=== PATIENT | male | born 1955 | race Caucasian/White ===

== ENCOUNTER 2018-06-29 10:43 | Inpatient (IN) ==
[2018-06-29] MEDS ORDERED: CeFAZolin Syr 2,000MG/20 ML 2,000 MG/20 ML SYRINGE IVPB ONE (10:55)
[2018-06-29] MEDS ORDERED: Ringers Solution, Lactated 1,000 ML IVC SCH (11:00)
--- NOTE | 2018-06-29 12:31 | Anesthesia Evaluation PreOp ---
Date of Encounter: 06/29/18 Time of Encounter: 12:16 - Past History Planned Operation: Robotic Right Incisional Hernia Cardiac History: Denies any Significant Hx Pulmonary History: Denies Any Significant HX [employer] History: Seizures (last one 1994) Other Medical History: Denies Any Significant HX Anesthesia History: No Prior Anesthetic Complications, Past Anesthesia (CTR, Co lonoscopy, abdominal sx, r- wrist) Alcohol Use: none Drug use: none Medications and Allergies carBAMazepine [Tegretol] 200 mg PO BID 04/29/18 [History] FLUoxetine HCl [Fluoxetine HCl] 40 mg PO QAM 06/29/18 [History] Allergy/AdvReac Type Severity Reaction Status Date / Time morphine AdvReac Vomiting Verified 06/29/18 11:17 - Meds/Allergy Pre-op Review Medications Reviewed: Yes Allergies Reviewed: Yes Beta Blockers on Current Med List: No Anesthesia Results - Labs Laboratory Tests 06/19/18 06/19/18 14:02 14:02 WBC 5.8 Hgb 13.8 Hct 41.3 Plt Count 384 Creatinine 0.68 L - Imaging EKG: report reviewed Anesthesia Exam O2 Sat Height 1.68 m Height 1.68 m Weight 78.018 kg Weight 78.018 kg O2 Sat by Pulse Oximetry 95 Vital Signs Temp Pulse Resp BP Pulse Ox 98.3 F 76 18 128/77 95 06/29/18 10:59 06/29/18 10:59 06/29/18 10:59 06/29/18 10:59 06/29/18 10:59 NPO (# of Hours): > 8 hrs Pain Scale: 0 Pain Scale Used: Numeric (1 - 10) - HEENT Pupil (Motor): EOMI Mallampati: II Teeth: Normal Oral Opening: Greater than 3 - [employer] LOC: Oriented [employer] Motor: Normal RUE, Normal LUE, Normal RLE, Normal LLE, Normal Face [employer] Sensory: Normal: RUE, LUE, RLE, LLE, Face - Cardiac Rhythm: Regular Murmur: None JVD: No Carotid Bruit: No - Pulmonary Breath Sounds: bilateral Clear Respiratory Effort: Symmetrical Anesthesia Assess/Plan ASA Score: 2 Level of consciousness: Cooperative Anesthetic Plan: General Autologous Blood: Yes Monitoring Plan: Standard Monitors Recovery Plan: PACU
[2018-06-29] MEDS ORDERED: Albuterol 2.5 MG/3 ML NEBULIZER IH ONE (12:43)
[2018-06-29] MEDS ORDERED: *HR* OxyCODONE Immed Rel 5 MG TABLET PO PRN (12:43)
[2018-06-29] MEDS ORDERED: *HR* HYDROmorphone (PF) 1 MG/ML SYRINGE IVP PRN (12:43)
[2018-06-29] MEDS ORDERED: *HR* Promethazine 25 MG/ML VIAL IVP PRN (12:43)
[2018-06-29] MEDS ORDERED: Ondansetron 4 MG/2 ML VIAL IVP ONE (12:43)
[2018-06-29] MEDS ORDERED: *HR* Labetalol 20 MG/4 ML SYRINGE IVP PRN (12:43)
[2018-06-29] MEDS ORDERED: Ondansetron 4 MG/2 ML VIAL ONE (13:29)
[2018-06-29] MEDS ORDERED: *HR* FentaNYL (PF) 100 MCG/2 ML VIAL ONE (13:29)
[2018-06-29] MEDS ORDERED: *HR* Midazolam HCl 2 MG/2 ML VIAL ONE (13:29)
[2018-06-29] MEDS ORDERED: Dexamethasone 4 MG/ML VIAL ONE (13:29)
[2018-06-29] MEDS ORDERED: *HR* Propofol 200 MG/20 ML VIAL IVP ONE (13:29)
[2018-06-29] MEDS ORDERED: Lidocaine -MPF 2% 2 ML VIAL ONE (13:29)
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
--- NOTE | 2018-06-29 14:27 | Operative Note ---
Date of procedure: 06/29/18 Pre-op diagnosis: incisional hernias Post-op diagnosis: other (same and trocar colon injury) Procedure: Laparoscopic converted to open, lysis of adhesions x 1 hour, repair colotomy x 2, primary repair incisional hernias. Complications: none immediate Anesthesia: DEVIA, local Surgeon: Elisa Campos Was there an real estate administrative assistant present: Yes Music Library Assistant: Katerina Vallejo Estimated blood loss (cc): 25 Specimen: transverse colon Condition: stable Disposition: PACU Procedure in Detail: Patient is brought to the operating suite and placed supine on the operating table. Sign in was performed and everyone was in agreement. Anesthesia was induced and patient was endotracheally intubated by anesthesia without incident. Bilateral arms were tucked at the patient's side. The abdomen was shaved. The abdomen was prepped and draped in the usual sterile fashion. Timeout was performed again everyone was in agreement. Stab incision in the right upper quadrant through the skin and the subcutaneous tissues made with the 11 blade. Veress needle was placed in this and water drop test confirmed placement and the abdomen was insufflated. We then entered the abdomen with a 5 mm 0 degree laparoscope and a 5 mm XL trocar in the right upper quadrant incision site. Once into the abdomen it was noted that we were intraluminal likely colonic. The trocar was left in place and the gas turned off. A midline incision through the skin and the subcutaneous tissue with the upper abdomen was made with a 15 blade. Dissection through the subcutaneous tissue into the abdominal cavity was made with the Bovie. The fascial incision was elongated proximally and distally. Lysis of adhesions between the colon, small bowel, and anterior abdominal wall were taken down with the Bovie and with sharp Metzenbaum scissors for over an hour freeing up the colon in the right upper quadrant as well as the bowel beneath the open midline incision. There appeared to be a through and through injury to the transverse colon from the 5 mm trocar, which were several centimeters away from each other. Babcocks were placed along the distal colotomy in the colon was closed with a linear BEVERLY-75 stapler blue load. The staple line was reinforced with 3-0 silk [id number] stitches. One [place] was placed across the proximal colotomy and this was closed with a TX 30 stapler. The abdominal cavity was irrigated copiously with sterile saline. There was a retroperitoneal hematoma which was opened. There did not appear to be any renal injury as this was overlying the right kidney. The duodenum was seen and evaluated and no apparent injury to the duodenum. The abdomen was irrigated with sterile saline again. A incision of the right abdominal wall through the skin and the subcutaneous tissues made with a 15 blade. Using a tonsil a 19-Hebrew Buster drain was pulled through the abdominal wall and secured to the abdominal wall with a 2-0 silk stitch. Prosper's were placed in either side of the fascia for retraction. Preperitoneal and omental fat that had herniated into the 3, several centimeter, hernia defects just ( bi-)lateral to the midline incision were taken down with the Bovie and Metzenbaum scissors. The abdominal wall was reapproximated with 2 #1 non-looped PDS running stitches meeting in the middle. All lap and ensuring counts are correct at the end of the case. The subcutaneous tissue was copiously irrigated with sterile saline. The subcutaneous tissue was reapproximated with 3-0 Vicryl interrupted stitches. The skin was closed with angela. 2 areas of midline incision were packed with quarter inch iodoform packing. The right upper quadrant incision from a trocar was packed with quarter inch iodoform packing. 4 x 4 gauze and Medipore tape were applied to the right upper quadrant trocar site and the midline incision as dressing. Drain sponge and tape were applied to the Buster drain site. Patient tolerated the procedure well. He was awoken by anesthesia next abated in the OR. He was taken to PACU in stable condition.
--- NOTE | 2018-06-29 14:30 | Discharge Summary ---
Outpatient Proc Discharge Plan - Plan Instructions: Incisional Hernia (DC), Laparoscopic Herniorrhaphy (DC) Additional Instructions: No lifting more than 20 pounds for 6 weeks. Okay to take a shower in 24 hours. No tub baths or pools for 1 week. Okay to ride in the car wearing a seatbelt and climb steps. No driving until off narcotics for 24 hours and able to react safely Remove Steri-Strips in 1 week Do not take pain medicine/narcotics on an empty stomach it will likely cause nausea and possibly vomiting. If pain medication is too strong okay to break in half ok to use ice packs to area(s) of pain - on for 20 minutes, off for 20 minutes Prescriptions: Docusate [Colace] 100 mg PO BID #30 capsule Oxycodone HCl/Acetaminophen [Percocet 5-325 mg Tablet] 1 each PO Q4HR PRN 7 Days #30 tablet PRN Reason: Pain Home Medications: carBAMazepine [Tegretol] 200 mg PO BID 04/29/18 [History] Docusate [Colace] 100 mg PO BID #30 capsule 06/29/18 [Rx] FLUoxetine HCl [Fluoxetine HCl] 40 mg PO QAM 06/29/18 [History] Oxycodone HCl/Acetaminophen [Percocet 5-325 mg Tablet] 1 each PO Q4HR PRN 7 Days #30 tablet 06/29/18 [Rx]
[2018-06-29] MEDS ORDERED: *HR* OxyCODONE/APAP 5/325 TABLET PO ONE (14:31)
[2018-06-29] MEDS ORDERED: Neostigmine Methylsulfate 3 MG/3 ML SYRINGE ONE (14:53)
[2018-06-29] MEDS ORDERED: *HR* Morphine 10 MG/ML VIAL ONE (15:02)
[2018-06-29] MEDS ORDERED: *HR* HYDROMORPHONE 2 MG/ML VIAL ONE ×2 (15:12→16:18)
[2018-06-29] MEDS ORDERED: Piperacillin/Tazobactam 3.375 GM in 0.9 % Sodium Chloride Mini Bag 100 ML IVPB STA (15:25)
--- NOTE | 2018-06-29 21:09 | Anesthesia Evaluation Post Op ---
Date of Encounter: 06/29/18 Time of Encounter: 19:30 - Vital Signs Vital Signs: Vital Signs/O2 Sat/Glucose, Most Current Temp Pulse Resp BP Pulse Ox 06/29/18 19:26 98.4 F 92 16 104/61 95 06/29/18 19:16 86 16 110/59 94 06/29/18 19:06 93 16 109/63 95 06/29/18 18:56 98.1 F 80 16 111/59 95 06/29/18 18:46 83 16 114/57 95 06/29/18 18:36 80 16 114/58 95 06/29/18 18:26 98.1 F 93 12 124/66 94 06/29/18 18:16 87 14 120/70 94 06/29/18 18:06 78 14 120/69 94 06/29/18 17:56 97.8 F 80 14 122/71 94 06/29/18 17:46 79 16 129/83 94 06/29/18 17:36 79 14 138/79 95 06/29/18 17:26 98.2 F 80 14 130/88 95 06/29/18 17:16 75 14 134/77 98 06/29/18 17:10 98.1 F 75 14 122/74 98 - Lungs Lungs: Clear Ascult./Percussion - Airway Airway: Non-obstructed - Mental Status Mental Status: Alert & Oriented, Answers Appropriately - Pain Pain Scale: 0 Pain Scale used: Numeric (1 - 10) - Nausea Vomiting Nausea Vomiting: Not Present - Hydration Hydration: Tolerates oral liquids, Able to void - Discharge PostOp Status: Discharge Patient to home Anes Supervising Prov Stmt: PT VSS and has met criteria for discharge to floor. - MD Tangela
[2018-06-29] MEDS ORDERED: OXYCODONE Oral CONC 10 MG/0.5 ML ORAL.SYG SL SCH (22:15)
[2018-06-30] MEDS ORDERED: Acetaminophen IV 1,000 MG/100 ML INFUS..BTL IVPB SCH
[2018-06-30] MEDS ORDERED: *HR* Metoprolol 5 MG/5 ML VIAL IVP PRN (05:57)
[2018-06-30] MEDS ORDERED: Ondansetron 4 MG/2 ML VIAL IVP PRN (05:57)
[2018-06-30] MEDS ORDERED: Naloxone 0.4 MG/ML INJ IVP PRN ×2 (05:57)
[2018-06-30] MEDS ORDERED: *HR* HYDROmorphone 20 MG/20 ML PCA IVC PRN (05:57)
[2018-06-30] MEDS: 0.9 % Sodium Chloride 1,000 ML IVC SCH ×2 (07:24→16:03)
[2018-06-30] MEDS: Acetaminophen IV 1,000 MG/100 ML INFUS..BTL IVPB SCH ×3 (07:26→17:24)
[2018-06-30] MEDS: carBAMazepine 200 MG TABLET PO SCH ×3 (07:30→21:33)
[2018-06-30] MEDS ORDERED: OXYCODONE Oral CONC 10 MG/0.5 ML ORAL.SYG SL PRN (07:31)
[2018-06-30] MEDS: OXYCODONE Oral CONC 10 MG/0.5 ML ORAL.SYG SL PRN ×3 (08:07→21:33)
[2018-06-30] MEDS: Pantoprazole 40 MG VIAL IVP SCH (08:07)
[2018-06-30] MEDS: FLUoxetine 20 MG CAPSULE PO SCH (08:10)
[2018-06-30] MEDS: Piperacillin/Tazobactam 3.375 GM in 0.9 % Sodium Chloride Mini Bag 100 ML IVPB SCH ×2 (08:11→16:04)
--- NOTE | 2018-06-30 08:23 | General Surgery Progress Note ---
<SauravRebeca Galo - Last Filed: 06/30/18 08:51> Date of Encounter: 06/30/18 Time of Encounter: 08:30 - Assessment and Plan (1) Incisional hernia Current Visit: Yes Status: Chronic Date of procedure: 06/29/18 Pre-op diagnosis: incisional hernias Post-op diagnosis: other (same and trocar colon injury) Procedure: Laparoscopic converted to open, lysis of adhesions x 1 hour, repair colotomy x 2, primary repair incisional hernias. Complications: none immediate Anesthesia: GETA, local Surgeon: Elisa Campos POD #1 as above. ROB site is unremarkable. Sanguineous output in ROB drain. Small amount of new Sanguineous output on abdominal dressing. He is nauseated and a ctively vomiting x1 approximately 100 mL while I was in the room. He was treated with Phenergan x1 and a scopolamine patch ordered. He also has PRN Zofran. Labs are pending Plan: Continue supportive care and discomfort management while awaiting full return of bowel function Continue G.I. and DVT prophylaxis Incentive spirometry 10 times every hour while awake Out of bed to chair TID Activity as tolerated Apply ice 20 minutes on 20 minutes off as needed Apply abdominal binder ROB care Daily Dressing changes Repeat am labs Ice chips only; consideration to advance to clears pending resolution of nausea Continue IV ATBX given operative course above Qualifiers: Obstruction and gangrene presence: without obstruction or gangrene Qualified Code(s): K43.2 - Incisional hernia without obstruction or gangrene; K43.91 - Incisional hernia, without obstruction or gangrene (2) Seizures Current Visit: Yes Status: Acute per record review, last seizure was in the . We will continue his home tegratol and closely monitor (3) Depressed mood Current Visit: Yes Status: Acute Continue home Prozac (4) DVT prophylaxis Current Visit: Yes Status: Acute EPCDs possibly start heparin sub Q tonight pending labs and drainage Subjective Patient reports: still having pain, voiding w/o difficulty, no flatus, no bowel movement, nausea, vomiting Narrative: Reports feeling sore and has nausea. Vomiting x1 Objective Vital Signs - Last 8 Hours Temp Pulse Resp BP Pulse Ox 06/30/18 07:20 98.9 F 79 19 114/67 97 06/30/18 04:56 98.7 F 83 16 108/70 97 Intake and Output 06/29/18 06/30/18 06/30/18 23:59 07:59 15:59 Intake Total 200 / 200 Output Total 145 / 145 275 / 275 Balance -145 / -125 -75 / -75 Intake: IV Fluids 200 / 200 Ofirmev 1,000 mg/100 ml 1,000 200 / 200 mg In 100 ml @ 400 mls/hr IVPB Q6H [facility] Rx#:[id number] Output: Urine 275 / 275 Estimated Blood Loss 25 / 25 Wound Drainage 120 / 120 Other: Weight 78.018 kg 78.2 kg Patient Weight 06/30/18 23:59 Weight 78.2 kg - General physical appearance no distress - Eyes normal ocular movement - ENT atraumatic, normocephalic - Neck Neck exam: trachea midline - Respiratory other (decreased breath sounds; decreased resp effort) - Cardiovascular Cardiovascular exam: Present: RRR - Abdomen Abdomen: Present: soft, tender (expected postoperative), wound (ROB site unremarkable. ROB is with sanguineous output). Absent: bowel sounds present - Incision Incision: Present: draining (SS drainage), intact - Integumentary no rash - Neurologic normal coordination, normal sensation - Musculoskeletal normal posture - Psychiatric oriented to time, oriented to person, oriented to place, speech is normal, memory intact Consult Discharge Plan - Plan Instructions: Laparoscopic Herniorrhaphy (DC), Incisional Hernia (DC) Additional Instructions: No lifting more than 20 pounds for 6 weeks. Okay to take a shower in 24 hours. No tub baths or pools for 1 week. Okay to ride in the car wearing a seatbelt and climb steps. No driving until off narcotics for 24 hours and able to react safely Remove Steri-Strips in 1 week Do not take pain medicine/narcotics on an empty stomach it will likely cause nausea and possibly vomiting. If pain medication is too strong okay to break in half ok to use ice packs to area(s) of pain - on for 20 minutes, off for 20 minutes Referrals: Carmen Jules, INTERNAL GRINDER [Primary Care Provider] - <Elisa Campos - Last Filed: 06/30/18 14:28> Date of Encounter: 06/30/18 - Assessment and Plan (1) Incisional hernia Current Visit: Yes Status: Chronic pod #1 lap to open, KIT, repair colotomy x2, primary repair incisional hernias x4 npo prn antiemetics, scopalamine patch ivf hydration cont prn pain medication continue scheduled ofirmev ambulate, OOB BID ok continue home meds daily wound care continue antibiotics Qualifiers: Obstruction and gangrene presence: without obstruction or gangrene Qualified Code(s): K43.2 - Incisional hernia without obstruction or gangrene; K43.91 - Incisional hernia, without obstruction or gangrene (2) Leukocytosis Current Visit: Yes Status: Acute trend continue abx no fevers HR wnl Qualifiers: Leukocytosis type: other Qualified Code(s): D72.828 - Other elevated white blood cell count (3) DVT prophylaxis Current Visit: Yes Status: Acute (4) Seizures Current Visit: Yes Status: Acute continue home med Subjective Patient reports: still having pain, voiding w/o difficulty, no flatus, no bowel movement, nausea, vomiting, afebrile Objective Vital Signs - Last 8 Hours Temp Pulse Resp BP Pulse Ox 06/30/18 10:24 98.8 F 75 15 119/62 97 06/30/18 07:20 98.9 F 79 19 114/67 97 Intake and Output 06/29/18 06/30/18 06/30/18 23:59 07:59 15:59 Intake Total 200 / 900 700 / 900 Output Total 145 / 145 275 / 295 20 / 295 Balance -145 / -125 -75 / 605 680 / 605 Intake: IV Fluids 200 / 900 700 / 900 0.9 % Sodium Chloride 1,000 ML 500 / 500 @ 120 mls/hr IVC .[id number] [facility] Rx #:[id number] Ofirmev 1,000 mg/100 ml 1,000 200 / 300 100 / 300 mg In 100 ml @ 400 mls/hr IVPB Q6H [facility] Rx#:[id number] Zosyn 3.375 GM In 0.9 % Sodium 100 / 100 Chloride (Mini-Bag +) 100 ML @ 25 mls/hr IVPB Q8HR [facility] Rx#: [id number] Oral 0 / 0 Output: Urine 275 / 275 0 / 275 Estimated Blood Loss 25 / 25 Wound Drainage 120 / 120 20 / 20 Right Lower Abdomen Other: Meal NPO Percent of Meal Consumed 0% Weight 78.018 kg 78.2 kg Blood Glucose* 124 Patient Weight 06/30/18 23:59 Weight 78.2 kg - General physical appearance well developed, well nourished, no distress - Eyes PERRL, normal ocular movement - ENT normal mucosa, normocephalic - Neck Neck exam: trachea midline - Respiratory normal expansion, clear to auscultation - Cardiovascular Cardiovascular exam: Present: RRR - Abdomen Abdomen: Present: soft, tender, wound (ROB site unremarkable. ROB is with serosanguineous output). Absent: bowel sounds present - Incision Incision: Present: draining, intact - Neurologic normal coordination, normal sensation - Musculoskeletal normal gait, normal posture - Psychiatric oriented to time, oriented to person, oriented to place, speech is normal - Labs 06/30/18 09:25 06/30/18 09:25 Diabetes panel 06/30/18 Range/Units 09:25 Sodium 134 L (136-145) mEq/L Potassium 4.4 (3.5-5.1) mEq/L Chloride 102 (98-107) mEq/L Carbon Dioxide 29 (23-29) mEq/L BUN 15 (8-23) mg/dL Creatinine 0.76 (0.70-1.30) mg/dL Glucose 143 H (70-105) mg/dL Calcium 8.3 L (8.6-10.3) mg/dL AST 17 (13-39) Units/L ALT 16 (7-52) Units/L Alkaline Phosphatase 73 (34-104) Units/L Albumin 3.3 L (3.5-5.7) g/dL Calcium panel 06/30/18 Range/Units 09:25 Calcium 8.3 L (8.6-10.3) mg/dL Albumin 3.3 L (3.5-5.7) g/dL Pituitary panel 06/30/18 Range/Units 09:25 Sodium 134 L (136-145) mEq/L Potassium 4.4 (3.5-5.1) mEq/L Chloride 102 (98-107) mEq/L Carbon Dioxide 29 (23-29) mEq/L BUN 15 (8-23) mg/dL Creatinine 0.76 (0.70-1.30) mg/dL Glucose 143 H (70-105) mg/dL Calcium 8.3 L (8.6-10.3) mg/dL Adrenal panel 06/30/18 Range/Units 09:25 Sodium 134 L (136-145) mEq/L Potassium 4.4 (3.5-5.1) mEq/L Chloride 102 (98-107) mEq/L Carbon Dioxide 29 (23-29) mEq/L BUN 15 (8-23) mg/dL Creatinine 0.76 (0.70-1.30) mg/dL Glucose 143 H (70-105) mg/dL Calcium 8.3 L (8.6-10.3) mg/dL Total Bilirubin 0.8 (0.3-1.0) mg/dL AST 17 (13-39) Units/L ALT 16 (7-52) Units/L Alkaline Phosphatase 73 (34-104) Units/L Albumin 3.3 L (3.5-5.7) g/dL - Attending Attestation I have personally performed a face to face evaluation on this patient. I have reviewed and agree with the care plan. History and Exam by me shows:
[2018-06-30] MEDS ORDERED: *HR* Promethazine 25 MG/ML VIAL IVP STA (08:33)
[2018-06-30] MEDS ORDERED: Scopolamine Patch 1.5 MG PATCH.TD72 TD ONE (08:34)
[2018-06-30 09:35] LABS: Basophils % 0.2 %; Hematocrit 42.1 % (37.5-50.1); Hemoglobin 14.2 g/dL (12.9-16.9); Immature Granulocytes % 0.4 % (0-4); Lymphocytes % 4.8 %; Mean Corpuscular HGB Conc 33.7 g/dL (31.6-35.5); Mean Corpuscular Hemoglobin 33.5 pg (28.0-33.3); Mean Corpuscular Volume 99.3 fL (83.0-100.0); Mean Platelet Volume 9.8 fL (9.4-12.4); Monocytes # 1.6 K/mcL (0.0-1.3); Monocytes % 7.8 %; Neutrophils # 17.3 K/mcL (1.6-8.9); Platelet Count 336 K/mcL (140-400); Red Blood Count 4.24 M/mcL (4.19-5.50); Red Cell Distribution Width 14.2 % (11.5-14.5); Segmented Neutrophils % 86.8 %
[2018-06-30 09:56] LABS: BUN/Creatinine Ratio 20 (6-26); Bilirubin,Direct 0.2 mg/dL (0.0-0.2); Bilirubin,Total 0.8 mg/dL (0.3-1.0); Blood Urea Nitrogen 15 mg/dL (8-23); Calcium 8.3 mg/dL (8.6-10.3); Carbon Dioxide 29 mEq/L (23-29); Chloride 102 mEq/L (98-107); Glucose 143 mg/dL (70-105); Magnesium 1.4 mg/dL (1.6-2.6); Osmolality,Calculated 281 (280-300); Potassium 4.4 mEq/L (3.5-5.1); Sodium 134 mEq/L (136-145); eGFR For Non-African Americans > 60 (> 60)
[2018-06-30 09:57] LABS: Alanine Aminotransferase 16 Units/L (7-52); Albumin 3.3 g/dL (3.5-5.7); Albumin/Globulin Ratio 1.2 (1.1-2.2); Alkaline Phosphatase 73 Units/L (34-104); Aspartate Amino Transferase 17 Units/L (13-39); Bilirubin,Indirect 0.6 mg/dL (0.0-1.2); Globulin 2.7 g/dL (2.4-3.5)
[2018-07-01] MEDS: Acetaminophen IV 1,000 MG/100 ML INFUS..BTL IVPB SCH ×5 (00:23→23:58)
[2018-07-01] MEDS: Piperacillin/Tazobactam 3.375 GM in 0.9 % Sodium Chloride Mini Bag 100 ML IVPB SCH ×4 (00:26→23:59)
[2018-07-01] MEDS: 0.9 % Sodium Chloride 1,000 ML IVC SCH ×3 (00:28→19:48)
[2018-07-01] MEDS ORDERED: *HR* Promethazine 25 MG/ML VIAL IVP PRN (08:48)
[2018-07-01 09:10] LABS: Basophils # 0.1 K/mcL (0.0-0.2); Basophils % 0.3 %; Eosinophils # 0.1 K/mcL (0.0-0.6); Eosinophils % 0.3 %; Hematocrit 36.9 % (37.5-50.1); Immature Granulocytes % 0.6 % (0-4); Lymphocytes # 1.3 K/mcL (0.6-4.6); Lymphocytes % 7.7 %; Mean Corpuscular HGB Conc 33.1 g/dL (31.6-35.5); Mean Corpuscular Hemoglobin 32.9 pg (28.0-33.3); Mean Corpuscular Volume 99.5 fL (83.0-100.0); Mean Platelet Volume 10.4 fL (9.4-12.4); Monocytes # 1.2 K/mcL (0.0-1.3); Monocytes % 7.5 %; Neutrophils # 13.6 K/mcL (1.6-8.9); Platelet Count 308 K/mcL (140-400); Red Blood Count 3.71 M/mcL (4.19-5.50); Red Cell Distribution Width 14.1 % (11.5-14.5); Segmented Neutrophils % 83.6 %
[2018-07-01 09:18] LABS: Hemoglobin 12.2 g/dL (12.9-16.9)
[2018-07-01] MEDS: Pantoprazole 40 MG VIAL IVP SCH (09:23)
[2018-07-01] MEDS ORDERED: Promethazine 25 MG in 0.9 % Sodium Chloride 50 ML IVPB PRN (09:23)
[2018-07-01] MEDS: FLUoxetine 20 MG CAPSULE PO SCH (09:23)
[2018-07-01] MEDS: carBAMazepine 200 MG TABLET PO SCH ×2 (09:23→22:00)
[2018-07-01] MEDS ORDERED: *HR* Promethazine 25 MG/ML VIAL IVP ONE (09:30)
[2018-07-01 09:32] LABS: Alanine Aminotransferase 11 Units/L (7-52); Albumin 3.1 g/dL (3.5-5.7); Albumin/Globulin Ratio 1.2 (1.1-2.2); Alkaline Phosphatase 64 Units/L (34-104); Aspartate Amino Transferase 13 Units/L (13-39); BUN/Creatinine Ratio 17 (6-26); Bilirubin,Direct 0.2 mg/dL (0.0-0.2); Bilirubin,Indirect 0.5 mg/dL (0.0-1.2); Bilirubin,Total 0.7 mg/dL (0.3-1.0); Blood Urea Nitrogen 11 mg/dL (8-23); Calcium 8.6 mg/dL (8.6-10.3); Carbon Dioxide 27 mEq/L (23-29); Chloride 104 mEq/L (98-107); Globulin 2.5 g/dL (2.4-3.5); Glucose 105 mg/dL (70-105); Osmolality,Calculated 282 (280-300); Potassium 3.9 mEq/L (3.5-5.1); Sodium 136 mEq/L (136-145); Total Protein 5.6 g/dL (6.4-8.9); eGFR For Non-African Americans > 60 (> 60)
--- NOTE | 2018-07-01 13:17 | General Surgery Progress Note ---
Date of Encounter: 07/01/18 Time of Encounter: 13:14 - Assessment and Plan (1) Incisional hernia Current Visit: Yes Status: Chronic pod #2 lap to open, KIT, repair colotomy x2, primary repair incisional hernias x4 start clears today prn antiemetics, scopalamine patch ivf hydration cont prn pain medication continue scheduled ofirmev ambulate, OOB BID ok continue home meds daily wound care continue antibiotics, started diflucan Qualifiers: Obstruction and gangrene presence: without obstruction or gangrene Q ualified Code(s): K43.2 - Incisional hernia without obstruction or gangrene; K43.91 - Incisional hernia, without obstruction or gangrene (2) Leukocytosis Current Visit: Yes Status: Acute trend, decreased today continue abx no fevers HR wnl Qualifiers: Leukocytosis type: other Qualified Code(s): D72.828 - Other elevated white blood cell count (3) DVT prophylaxis Current Visit: Yes Status: Acute (4) Seizures Current Visit: Yes Status: Acute continue home med Subjective Patient reports: no new complaints, still having pain, voiding w/o difficulty, flatus, no bowel movement, afebrile Objective Vital Signs - Last 8 Hours Temp Pulse Resp BP Pulse Ox 07/01/18 10:05 98.3 F 85 15 123/76 94 07/01/18 06:51 98.9 F 78 15 106/64 93 Intake and Output 06/30/18 07/01/18 07/01/18 23:59 07:59 15:59 Intake Total 1180 / 2242 1100 / 2400 1300 / 2400 Output Total 880 / 2090 315 / 1273 958 / 1273 Balance 300 / 152 785 / 1127 342 / 1127 Intake: IV Fluids 700 / 1702 1100 / 2400 1300 / 2400 0.9 % Sodium Chloride 1,000 ML 500 / 1000 1000 / 2000 1000 / 2000 @ 120 mls/hr IVC .Q8H20M [facility] Rx #:[id number] Ofirmev 1,000 mg/100 ml 1,000 100 / 300 100 / 300 200 / 300 mg In 100 ml @ 400 mls/hr IVPB Q6H [facility] Rx#:[id number] Zosyn 3.375 GM In 0.9 % Sodium 100 / 200 100 / 100 Chloride (Mini-Bag +) 100 ML @ 25 mls/hr IVPB Q8HR COUNTS INCLUDE 234 BEDS AT THE [facility] Rx#: [id number] Oral 480 / 540 0 / 0 0 / 0 Output: Urine 850 / 2020 275 / 1225 950 / 1225 Wound Drainage Right Lower Abdomen Other: Meal NPO BREAKFAST NPO Percent of Meal Consumed 0% Weight 79 kg Blood Glucose* 94 91 88 Patient Weight 07/01/18 23:59 Weight 79 kg - General physical appearance well developed, well nourished, no distress, moderate pain - Eyes PERRL, normal ocular movement - ENT normal mucosa, normocephalic - Neck Neck exam: trachea midline - Respiratory normal expansion, clear to auscultation - Cardiovascular Cardiovascular exam: Present: RRR - Abdomen Abdomen: Present: bowel sounds present, soft, tender (appropriate post op tend ernss). Absent: masses - Incision Incision: Present: clean and dry, open - Integumentary no rash - Neurologic CN 2-12 grossly intact - Musculoskeletal normal posture - Psychiatric oriented to time, oriented to person, oriented to place, speech is normal, m [place] intact - Labs 07/02/18 03:26 07/02/18 03:26 Diabetes panel 07/01/18 Range/Units 08:39 Sodium 136 (136-145) mEq/L Potassium 3.9 (3.5-5.1) mEq/L Chloride 104 (98-107) mEq/L Carbon Dioxide 27 (23-29) mEq/L BUN 11 (8-23) mg/dL Creatinine 0.65 L (0.70-1.30) mg/dL Glucose 105 (70-105) mg/dL Calcium 8.6 (8.6-10.3) mg/dL AST 13 (13-39) Units/L ALT 11 (7-52) Units/L Alkaline Phosphatase 64 (34-104) Units/L Albumin 3.1 L (3.5-5.7) g/dL Calcium panel 07/01/18 Range/Units 08:39 Calcium 8.6 (8.6-10.3) mg/dL Phosphorus 2.0 L (2.7-4.5) mg/dL Albumin 3.1 L (3.5-5.7) g/dL Pituitary panel 07/01/18 Range/Units 08:39 Sodium 136 (136-145) mEq/L Potassium 3.9 (3.5-5.1) mEq/L Chloride 104 (98-107) mEq/L Carbon Dioxide 27 (23-29) mEq/L BUN 11 (8-23) mg/dL Creatinine 0.65 L (0.70-1.30) mg/dL Glucose 105 (70-105) mg/dL Calcium 8.6 (8.6-10.3) mg/dL Adrenal panel 07/01/18 Range/Units 08:39 Sodium 136 (136-145) mEq/L Potassium 3.9 (3.5-5.1) mEq/L Chloride 104 (98-107) mEq/L Carbon Dioxide 27 (23-29) mEq/L BUN 11 (8-23) mg/dL Creatinine 0.65 L (0.70-1.30) mg/dL Glucose 105 (70-105) mg/dL Calcium 8.6 (8.6-10.3) mg/dL Total Bilirubin 0.7 (0.3-1.0) mg/dL AST 13 (13-39) Units/L ALT 11 (7-52) Units/L Alkaline Phosphatase 64 (34-104) Units/L Albumin 3.1 L (3.5-5.7) g/dL Consult Discharge Plan - Plan Instructions: Laparoscopic Herniorrhaphy (DC), Incisional Hernia (DC) Additional Instructions: No lifting more than 20 pounds for 6 weeks. Okay to take a shower in 24 hours. No tub baths or pools for 1 week. Okay to ride in the car wearing a seatbelt and climb steps. No driving until off narcotics for 24 hours and able to react safely Remove Steri-Strips in 1 week Do not take pain medicine/narcotics on an empty stomach it will likely cause nausea and possibly vomiting. If pain medication is too strong okay to break in half ok to use ice packs to area(s) of pain - on for 20 minutes, off for 20 minutes Referrals: Carmen Jules, [employer]ER [Primary Care Provider] -
[2018-07-01] MEDS: Fluconazole 200 MG/100 ML 200 MG/100 ML BAG IVPB SCH (13:48)
[2018-07-02] MEDS: 0.9 % Sodium Chloride 1,000 ML IVC SCH (04:24)
[2018-07-02 05:12] LABS: Basophils # 0.1 K/mcL (0.0-0.2); Basophils % 0.5 %; Eosinophils # 0.4 K/mcL (0.0-0.6); Eosinophils % 2.4 %; Hematocrit 37.2 % (37.5-50.1); Hemoglobin 12.1 g/dL (12.9-16.9); Immature Granulocytes % 0.6 % (0-4); Lymphocytes # 1.9 K/mcL (0.6-4.6); Lymphocytes % 12.7 %; Mean Corpuscular HGB Conc 32.5 g/dL (31.6-35.5); Mean Corpuscular Hemoglobin 32.6 pg (28.0-33.3); Mean Corpuscular Volume 100.3 fL (83.0-100.0); Monocytes # 1.3 K/mcL (0.0-1.3); Monocytes % 8.6 %; Neutrophils # 11.2 K/mcL (1.6-8.9); Platelet Count 310 K/mcL (140-400); Red Blood Count 3.71 M/mcL (4.19-5.50); Segmented Neutrophils % 75.2 %
[2018-07-02 05:20] LABS: BUN/Creatinine Ratio 11 (6-26); Blood Urea Nitrogen 8 mg/dL (8-23); Calcium 8.5 mg/dL (8.6-10.3); Carbon Dioxide 25 mEq/L (23-29); Chloride 104 mEq/L (98-107); Glucose 94 mg/dL (70-105); Magnesium 1.5 mg/dL (1.6-2.6); Osmolality,Calculated 282 (280-300); Phosphorous 2.1 mg/dL (2.7-4.5); Potassium 3.9 mEq/L (3.5-5.1); Sodium 137 mEq/L (136-145); eGFR For Non-African Americans > 60 (> 60)
[2018-07-02] MEDS: Acetaminophen IV 1,000 MG/100 ML INFUS..BTL IVPB SCH (07:17)
[2018-07-02] MEDS: carBAMazepine 200 MG TABLET PO SCH ×2 (08:39→20:18)
[2018-07-02] MEDS: FLUoxetine 20 MG CAPSULE PO SCH (08:39)
[2018-07-02] MEDS: Pantoprazole 40 MG VIAL IVP SCH (08:40)
[2018-07-02] MEDS: Fluconazole 200 MG/100 ML 200 MG/100 ML BAG IVPB SCH (08:43)
[2018-07-02] MEDS: Piperacillin/Tazobactam 3.375 GM in 0.9 % Sodium Chloride Mini Bag 100 ML IVPB SCH ×2 (08:46→15:02)
[2018-07-02] MEDS: *HR* Heparin 5,000 UNIT/ML VIAL SQ SCH ×2 (08:53→16:49)
--- NOTE | 2018-07-02 09:51 | General Surgery Progress Note ---
<Rebeca Mg - Last Filed: 07/02/18 09:47> Date of Encounter: 07/02/18 Time of Encounter: 08:00 - Assessment and Plan (1) Incisional hernia Current Visit: Yes Status: Chronic Date of procedure: 06/29/18 Pre-op diagnosis: incisional hernias Post-op diagnosis: other (same and trocar colon injury) Procedure: Laparoscopic converted to open, lysis of adhesions x 1 hour, repair colotomy x 2, primary repair incisional hernias. Complications: none immediate Anesthesia: DEVIA, local Surgeon: Elisa Campos POD # 3 as above. Pathology remains pending. His exam is as expected. He reports that he is passed flatus. His vital signs are stable. His white blood cell count is downtrending. He lives alone. He states he thinks his neighbor may be able to help him with his ROB drain. We will consult social work and occupational therapy for assistance with ROB and ADLs as he will have weight restrictions for 6 weeks. Plan: Continue supportive care and discomfort management while awaiting full return of bowel function Titrate IV meds to p.o. Continue G.I. and DVT prophylaxis Incentive spirometry 10 times every hour while awake Out of bed to chair TID, do not offer meal trays while in bed Ambulate hallss TID Apply ice 20 minutes on 20 minutes off as needed Apply abdominal binder ROB care Daily Dressing changes Repeat am labs FLD Continue IV ATBX given operative course above, will transition to po in the am in anticipation of possible D/C Friday Qualifiers: Obstruction and gangrene presence: without obstruction or gangrene Qualified Code(s): K43.2 - Incisional hernia without obstruction or gangrene; K43.91 - Incisional hernia, without obstruction or gangrene (2) Seizures Current Visit: Yes Status: Chronic per record review, last seizure was in the . We will continue his home tegratol and closely monitor (3) Depressed mood Current Visit: Yes Status: Chronic Continue home Prozac (4) DVT prophylaxis Current Visit: Yes Status: Acute EPCDs Heparin SQ BID (5) Electrolyte abnormality Current Visit: Yes Status: Acute Replaced Clive Singh today. Replete sites as indicated Subjective Patient reports: no new complaints, feels better, still having pain, pain is less, tolerating liquids well, voiding w/o difficulty, flatus, no bowel movement, afebrile Narrative: states is feeling much better today. Objective Vital Signs - Last 8 Hours Temp Pulse Resp BP Pulse Ox 07/02/18 04:12 98.6 F 74 16 125/76 95 Intake and Output 07/01/18 07/02/18 07/02/18 23:59 07:59 15:59 Intake Total 1680 / 4280 1400 / 1640 240 / 1640 Output Total 525 / 2708 1220 / 1220 Balance 1155 / 1572 180 / 420 240 / 420 Intake: IV Fluids 1200 / 3800 1200 / 1200 0.9 % Sodium Chloride 1,000 ML 1000 / 3000 1000 / 1000 @ 120 mls/hr IVC .Q8H20M [facility] Rx #:[id number] Ofirmev 1,000 mg/100 ml 1,000 100 / 400 100 / 100 mg In 100 ml @ 400 mls/hr IVPB Q6H [facility] Rx#:[id number] Zosyn 3.375 GM In 0.9 % Sodium 100 / 300 100 / 100 Chloride (Mini-Bag +) 100 ML @ 25 mls/hr IVPB Q8HR [facility] Rx#: [id number] Oral 480 / 480 200 / 440 240 / 440 Output: Urine 500 / 2625 1200 / 1200 Wound Drainage Right Lower Abdomen Other: Meal CLEARS Breakfast Percent of Meal Consumed 100% Weight 79.3 kg Patient Weight 07/02/18 23:59 Weight 79.3 kg - General physical appearance well developed, well nourished, no distress - ENT atraumatic, normocephalic - Neck Neck exam: trachea midline - Respiratory other (decreased resp effort and breath sounds) - Cardiovascular Cardiovascular exam: Present: RRR - Abdomen Abdomen: Present: bowel sounds present, soft, tender (Expected postoperative), wound (ROB site unremarkable and is with SS drainage) Hernia: none - Incision Incision: Present: clean and dry, intact (Overall. The areas with packing with minimal SS drainage) - Integumentary no rash - Neurologic normal coordination, normal sensation - Musculoskeletal normal posture - Psychiatric oriented to time, oriented to person, oriented to place, speech is normal, memory intact - Labs 07/02/18 03:26 07/02/18 03:26 Diabetes panel 07/02/18 Range/Units 03:26 Sodium 137 (136-145) mEq/L Potassium 3.9 (3.5-5.1) mEq/L Chloride 104 (98-107) mEq/L Carbon Dioxide 25 (23-29) mEq/L BUN 8 (8-23) mg/dL Creatinine 0.74 (0.70-1.30) mg/dL Glucose 94 (70-105) mg/dL Calcium 8.5 L (8.6-10.3) mg/dL Calcium panel 07/02/18 Range/Units 03:26 Calcium 8.5 L (8.6-10.3) mg/dL Phosphorus 2.1 L (2.7-4.5) mg/dL Pituitary panel 07/02/18 Range/Units 03:26 Sodium 137 (136-145) mEq/L Potassium 3.9 (3.5-5.1) mEq/L Chloride 104 (98-107) mEq/L Carbon Dioxide 25 (23-29) mEq/L BUN 8 (8-23) mg/dL Creatinine 0.74 (0.70-1.30) mg/dL Glucose 94 (70-105) mg/dL Calcium 8.5 L (8.6-10.3) mg/dL Adrenal panel 07/02/18 Range/Units 03:26 Sodium 137 (136-145) mEq/L Potassium 3.9 (3.5-5.1) mEq/L Chloride 104 (98-107) mEq/L Carbon Dioxide 25 (23-29) mEq/L BUN 8 (8-23) mg/dL Creatinine 0.74 (0.70-1.30) mg/dL Glucose 94 (70-105) mg/dL Calcium 8.5 L (8.6-10.3) mg/dL Consult Discharge Plan - Plan Instructions: Laparoscopic Herniorrhaphy (DC), Incisional Hernia (DC) Additional Instructions: No lifting more than 20 pounds for 6 weeks. Okay to take a shower in 24 hours. No tub baths or pools for 1 week. Okay to ride in the car wearing a seatbelt and climb steps. No driving until off narcotics for 24 hours and able to react safely Remove Steri-Strips in 1 week Do not take pain medicine/narcotics on an empty stomach it will likely cause nausea and possibly vomiting. If pain medication is too strong okay to break in half ok to use ice packs to area(s) of pain - on for 20 minutes, off for 20 minutes Referrals: Carmen Jules, TELEPHONE ORDER SUPERVISOR [Primary Care Provider] - <Elisa Campos - Last Filed: 07/03/18 08:33> Date of Encounter: 07/02/18 Time of Encounter: 17:35 - Assessment and Plan (1) Incisional hernia Current Visit: Yes Status: Chronic pod 4# tolerating fulls, adv to regular for breakfast wbc decreasing, continue abx prn pain control OOB to chair will need home care upon dc for wound care drain care prn antiemetics ivf d/c'd today DC planning Qualifiers: Obstruction and gangrene presence: without obstruction or gangrene Qualified Code(s): K43.2 - Incisional hernia without obstruction or gangrene; K43.91 - Incisional hernia, without obstruction or gangrene (2) Leukocytosis Current Visit: Yes Status: Acute improving, continue zosyn, diflucan Qualifiers: Leukocytosis type: other Qualified Code(s): D72.828 - Other elevated white blood cell count (3) DVT prophylaxis Current Visit: Yes Status: Acute (4) Seizures Current Visit: Yes Status: Chronic continue home meds Subjective Patient reports: feels better, still having pain, pain is less, tolerating liquids well, voiding w/o difficulty, flatus, no bowel movement, afebrile Objective Vital Signs - Last 8 Hours Temp Pulse Resp BP Pulse Ox 07/03/18 07:15 98.4 F 66 15 117/67 98 07/03/18 04:28 98.3 F 68 15 103/54 96 Intake and Output 07/02/18 07/03/18 07/03/18 23:59 07:59 15:59 Intake Total 1580 / 3800 100 / 100 Output Total 0 900 / 900 Balance 1560 / 1610 -800 / -800 Intake: IV Fluids 1100 / 2400 100 / 100 0.9 % Sodium Chloride 1,000 ML 1000 / 2000 @ 120 mls/hr IVC .Q8H20M [facility] Rx #:[id number] Zosyn 3.375 GM In 0.9 % Sodium 100 / 300 100 / 100 Chloride (Mini-Bag +) 100 ML @ 25 mls/hr IVPB Q8HR [facility] Rx#: [id number] Oral 480 / 1400 0 / 0 Output: Urine 0 / 2150 900 / 900 Wound Drainage Right Lower Abdomen Other: Meal Dinner Percent of Meal Consumed 100% Stool Size Moderate Stool Consistency loose liquid Stool Color Brown # Voids 1 1 # Bowel Movements 1 1 - General physical appearance well developed, well nourished, no distress - Eyes normal ocular movement - ENT normal mucosa - Neck Neck exam: trachea midline - Respiratory normal expansion, normal respiratory effort - Cardiovascular Cardiovascular exam: Present: RRR - Abdomen Abdomen: Present: bowel sounds present, soft, tender (minimal postop tenderness) - Incision Incision: Present: clean and dry, intact - Integumentary no rash - Neurologic normal sensation - Musculoskeletal normal posture - Psychiatric oriented to time, oriented to person, oriented to place, memory intact - Labs 07/03/18 06:53 07/03/18 06:53 Diabetes panel 07/03/18 Range/Units 06:53 Sodium 139 (136-145) mEq/L Potassium 3.7 (3.5-5.1) mEq/L Chloride 105 (98-107) mEq/L Carbon Dioxide 28 (23-29) mEq/L BUN 8 (8-23) mg/dL Creatinine 0.70 (0.70-1.30) mg/dL Glucose 97 (70-105) mg/dL Calcium 8.6 (8.6-10.3) mg/dL Calcium panel 07/03/18 Range/Units 06:53 Calcium 8.6 (8.6-10.3) mg/dL Phosphorus 3.2 (2.7-4.5) mg/dL Pituitary panel 07/03/18 Range/Units 06:53 Sodium 139 (136-145) mEq/L Potassium 3.7 (3.5-5.1) mEq/L Chloride 105 (98-107) mEq/L Carbon Dioxide 28 (23-29) mEq/L BUN 8 (8-23) mg/dL Creatinine 0.70 (0.70-1.30) mg/dL Glucose 97 (70-105) mg/dL Calcium 8.6 (8.6-10.3) mg/dL Adrenal panel 07/03/18 Range/Units 06:53 Sodium 139 (136-145) mEq/L Potassium 3.7 (3.5-5.1) mEq/L Chloride 105 (98-107) mEq/L Carbon Dioxide 28 (23-29) mEq/L BUN 8 (8-23) mg/dL Creatinine 0.70 (0.70-1.30) mg/dL Glucose 97 (70-105) mg/dL Calcium 8.6 (8.6-10.3) mg/dL - Attending Attestation I have personally performed a face to face evaluation on this patient. I have reviewed and agree with the care plan. History and Exam by me shows:
[2018-07-02] MEDS ORDERED: Ibuprofen 800 MG TABLET PO PRN (09:54)
[2018-07-02] MEDS ORDERED: *HR* OxyCODONE/APAP 5/325 TABLET PO PRN (09:54)
[2018-07-02] MEDS ORDERED: OXYCODONE Oral CONC 10 MG/0.5 ML ORAL.SYG SL PRN (09:55)
[2018-07-03] MEDS: Piperacillin/Tazobactam 3.375 GM in 0.9 % Sodium Chloride Mini Bag 100 ML IVPB SCH ×2 (00:22→10:57)
[2018-07-03] MEDS: *HR* Heparin 5,000 UNIT/ML VIAL SQ SCH (05:19)
[2018-07-03 07:36] LABS: Basophils # 0.1 K/mcL (0.0-0.2); Basophils % 0.8 %; Eosinophils # 0.8 K/mcL (0.0-0.6); Eosinophils % 9.8 %; Hematocrit 34.9 % (37.5-50.1); Hemoglobin 11.7 g/dL (12.9-16.9); Immature Granulocytes % 0.4 % (0-4); Lymphocytes # 1.5 K/mcL (0.6-4.6); Mean Corpuscular HGB Conc 33.5 g/dL (31.6-35.5); Mean Corpuscular Hemoglobin 32.7 pg (28.0-33.3); Mean Corpuscular Volume 97.5 fL (83.0-100.0); Mean Platelet Volume 10.8 fL (9.4-12.4); Monocytes # 0.9 K/mcL (0.0-1.3); Monocytes % 10.4 %; Neutrophils # 5.1 K/mcL (1.6-8.9); Platelet Count 330 K/mcL (140-400); Red Blood Count 3.58 M/mcL (4.19-5.50); Red Cell Distribution Width 13.9 % (11.5-14.5); Segmented Neutrophils % 60.6 %
[2018-07-03 07:56] LABS: BUN/Creatinine Ratio 11 (6-26); Blood Urea Nitrogen 8 mg/dL (8-23); Calcium 8.6 mg/dL (8.6-10.3); Carbon Dioxide 28 mEq/L (23-29); Chloride 105 mEq/L (98-107); Glucose 97 mg/dL (70-105); Magnesium 1.6 mg/dL (1.6-2.6); Osmolality,Calculated 286 (280-300); Phosphorous 3.2 mg/dL (2.7-4.5); Potassium 3.7 mEq/L (3.5-5.1); Sodium 139 mEq/L (136-145); eGFR For Non-African Americans > 60 (> 60)
--- NOTE | 2018-07-03 07:56 | Discharge Summary ---
Orders not resulted at time of discharge: Pending orders 06/29/18 17:03 Surgical Pathology [PTH] Routine Date of Encounter: 07/03/18 Time of Encounter: 07:45 - Discharge Diagnosis (1) Incisional hernia Priority: Primary Status: Resolved Qualifiers: Obstruction and gangrene presence: without obstruction or gangrene Qualified Code(s): K43.2 - Incisional hernia without obstruction or gangrene; K43.91 - Incisional hernia, without obstruction or gangrene (2) Seizures Priority: Secondary Status: Chronic (3) Depressed mood Priority: Secondary Status: Chronic (4) DVT prophylaxis Priority: Secondary Status: Acute (5) Electrolyte abnormality Priority: Secondary Status: Resolved General Surgery Exam Initial Vital Signs Temp Pulse Resp BP Pulse Ox 98.3 F 76 18 128/77 95 06/29/18 10:59 06/29/18 10:59 06/29/18 10:59 06/29/18 10:59 06/29/18 10:59 - General physical appearance no distress, moderate pain - Neck trachea midline - Respiratory normal expansion, clear to auscultation - Cardiovascular Cardiovascular exam: Present: RRR - Abdomen Abdomen general surgery: Present: bowel sounds present, soft, tender (Expected postoperative), wound (Right ROB site is within normal limits. Serous drainage.) Hernia: Present: none - Incision Incision: Present: clean and dry, intact (overall, two areas of packing/wicking remain) - Integumentary Integumentary general surgery: Present: warm and dry, no abnormal pigmentation - Neurologic Present: CN 2-12 grossly intact - Musculoskeletal Present: normal gait, normal posture - Psychiatric Psychiatric general surgery: Present: appropriate, oriented to person, oriented to place, oriented to time, speech is normal, memory intact - Hospital Course Hospital course: Mr. Jiang is a 63 year old male who presented on 06/29/2018 for an elective laparoscopic incisional hernia repair. He was noted to have a laparoscopic converted to open, lysis of adhesions for 1 hour, repair colotomy x 2, and primary repair of incisional hernia on 06/29/2018. His pathology was consistent with the operative course. He has been supported with IV antibiotics, pain control, and closely observed. He is ambulating and voiding without difficulty, tolerating a diet without nausea or vomiting, vital signs are stable, and he is afebrile. Occupational therapy has recommended home healthcare. We will begin discharge planning to home with home health care for occupational therapy and nursing for his ROB wound care and midline surgical incision packing/wicking. He will follow up with Dr. Campos is approximately one week. - Time Spent with Patient Total time spent providing and/or coordinating discharge services: - Discharge Medications Prescriptions: New Docusate [Colace] 100 mg PO BID #30 capsule Oxycodone HCl/Acetaminophen [Percocet 5-325 mg Tablet] 1 each PO Q4HR PRN 7 Days #30 tablet PRN Reason: Pain Ciprofloxacin [Cipro] 500 mg PO BID 7 Days #14 tablet Fluconazole [Diflucan] 200 mg PO DAILY 7 Days #14 tablet metroNIDAZOLE [Flagyl] 500 mg PO TID 7 Days #21 tablet Ibuprofen [Motrin] 800 mg PO Q8HR PRN #30 tablet PRN Reason: Mild Pain Continued FLUoxetine HCl [Fluoxetine HCl] 40 mg PO QAM carBAMazepine [Tegretol] 200 mg PO BID Home Medications: carBAMazepine [Tegretol] 200 mg PO BID 04/29/18 [History] Docusate [Colace] 100 mg PO BID #30 capsule 06/29/18 [Rx] FLUoxetine HCl [Fluoxetine HCl] 40 mg PO QAM 06/29/18 [History] Oxycodone HCl/Acetaminophen [Percocet 5-325 mg Tablet] 1 each PO Q4HR PRN 7 Days #30 tablet 06/29/18 [Rx] Ciprofloxacin [Cipro] 500 mg PO BID 7 Days #14 tablet 07/03/18 [Rx] Fluconazole [Diflucan] 200 mg PO DAILY 7 Days #14 tablet 07/03/18 [Rx] Ibuprofen [Motrin] 800 mg PO Q8HR PRN #30 tablet 07/03/18 [Rx] metroNIDAZOLE [Flagyl] 500 mg PO TID 7 Days #21 tablet 07/03/18 [Rx] Allergies/Adverse Reactions: Allergy/AdvReac Type Severity Reaction Status Date / Time morphine AdvReac Vomiting Verified 06/29/18 11:17 Date of admission: 06/29/18 20:29 Primary care physician: Carmen Jules CNP Consults: 07/02/18 07:51 Consult to Credentialing Assistant [CONS] Routine Reason for Consult: [facility] for drain and wound care. Likely d/c friday07/02/18 07:54 Consult to Occupational Therapy [CONS] Stat Comment: Evaluate, develop and implement POC Reason for Consult: Mobilization and d/c planning. Pt lives alone, has midline incision, and drain. Will need assistance with ADLs and lifting restrictions of 10 lbs for 6 weeks. Likely d/c Friday Does patient have active BEDREST order?: No Is patient medically & hemodynamically stable?: Yes Patient assessed for mobility or mobilized this visit?: No Discharging clinician: Rebeca Mg Anticipated date of discharge: 07/03/18 Labs on day of discharge: Labs from last 24 hours 07/03/18 07/03/18 06:53 06:53 WBC 8.4 RBC 3.58 L Hgb 11.7 L Hct 34.9 L MCV 97.5 MCH 32.7 MCHC 33.5 RDW 13.9 Plt Count 330 MPV 10.8 Immature Gran % 0.4 Seg Neutrophils % 60.6 Lymphocytes % 18.0 Monocytes % 10.4 Eosinophils % 9.8 Basophils % 0.8 Neutrophils # 5.1 Lymphocytes # 1.5 Monocytes # 0.9 Eosinophils # 0.8 H Basophils # 0.1 Sodium 139 Potassium 3.7 Chloride 105 Carbon Dioxide 28 BUN 8 Creatinine 0.70 Est GFR ( Amer) > 60 Est GFR (Non-Af Amer) > 60 BUN/Creatinine Ratio 11 Glucose 97 Calculated Osmolality 286 Calcium 8.6 Phosphorus 3.2 Magnesium 1.6 - Patient Status Disposition: Home Health Service Condition: Good Functional capacity at discharge: independent ambulation Overall status at discharge: patient is progressing back to baseline - Discharge Instructions Instructions: Laparoscopic Herniorrhaphy (DC), Incisional Hernia (DC) Follow Up With: Carmen Jules CNP [Primary Care Provider] - Elisa Campos MD [Partnered Physician] - 07/10/18 2:50 pm Additional Instructions: No lifting more than 20 pounds for 6 weeks. Okay to take a shower. Okay to ride in the car wearing a seatbelt and climb steps. No driving until off narcotics for 24 hours and able to react safely Do not take pain medicine/narcotics on an empty stomach it will likely cause nausea and possibly vomiting. If pain medication is too strong okay to break in half ok to use ice packs to area(s) of pain - on for 20 minutes, off for 20 minutes Wear your abdominal binder while you are up and about. It is okay to take off while you're in bed or you may leave it on for comfort. Do not drink alcohol while taking metronidazole. Drinking alcohol while taking metronidazole can lead to violent abdominal pain of vomiting. Refrain from alcohol use or 48 hours after completing metronidazole. Daily Wound Care: (Midline Abdomen) remove dressing and packing. Wash with antibacterial soap. Repack areas with 1/4 inch plain gauze. Cover with a dry dressing. Daily ROB Drain Care: 1. Remove dressings. Shower with antibacterial soap. 2. Do not let the ROB drain dangle from your body. Use the safety pin to secure to your clothing. Secure the ROB to a lanyard or other type of long necklace when you shower. 3. Replace drain gauze and taped to secure. 4. Record the output from your ROB bulb (at least once daily) on the form provided and bring this with you to your follow-up appointment. 5. Keep the ROB drain to suction (squeeze the bulb and replace the cap while squeezing). 6. Strip the lines twice daily (hold onto the line as close to the body as you can, then with the other hand push the contents of the line into the ROB bulb). - Diet and Activity Activity: increase activity as tolerated Diet: advance to your usual diet
[2018-07-03] MEDS: FLUoxetine 20 MG CAPSULE PO SCH (10:58)
[2018-07-03] MEDS: carBAMazepine 200 MG TABLET PO SCH (10:58)
[2018-07-03] MEDS: Pantoprazole 40 MG VIAL IVP SCH (10:58)
[2018-07-03] MEDS: Fluconazole 200 MG/100 ML 200 MG/100 ML BAG IVPB SCH (11:03)
[2018-07-03 11:32] VITALS: BP 119/72
--- NOTE | 2018-07-03 12:05 | Physician Discharge Referral ---
Home Health/Hosp Referral Info Transfer to: Home Health Attending Provider: Dr. Elisa Campos Provider in Charge Post Discharge: Other (same) - Diagnosis (1) Incisional hernia Priority: Primary Status: Resolved (2) Seizures Priority: Secondary Status: Chronic (3) Depressed mood Priority: Secondary Status: Chronic (4) DVT prophylaxis Priority: Secondary Status: Acute (5) Electrolyte abnormality Priority: Secondary Status: Resolved - Respiratory Orders Smoking Cessation: Smoking cessation has been advised. For more information, call the [place] Tobacco Quit Line at 8-788-DYFL-NOW. - Dressing/Wound Care Site: See [facility] orders below - Diet/Nutrition Diet/Nutrition Orders: Regular - Activity Activity Orders: Up ad pranay - Services Needed Following services are medically necessary services: Nursing, Occupational Therapy Other Treatments: No lifting more than 20 pounds for 6 weeks. Okay to take a shower. Okay to ride in the car wearing a seatbelt and climb steps. No driving until off narcotics for 24 hours and able to react safely Do not take pain medicine/narcotics on an empty stomach it will likely cause nausea and possibly vomiting. If pain medication is too strong okay to break in half ok to use ice packs to area(s) of pain - on for 20 minutes, off for 20 minutes Wear your abdominal binder while you are up and about. It is okay to take off while you're in bed or you may leave it on for comfort. Do not drink alcohol while taking metronidazole. Drinking alcohol while taking metronidazole can lead to violent abdominal pain of vomiting. Refrain from alcohol use or 48 hours after completing metronidazole. Daily Wound Care: (Midline Abdomen) remove dressing and packing. Wash with antibacterial soap. Repack areas with 1/4 inch plain gauze. Cover with a dry dressing. Daily ROB Drain Care: 1. Remove dressings. Shower with antibacterial soap. 2. Do not let the ROB drain dangle from your body. Use the safety pin to secure to your clothing. Secure the ROB to a lanyard or other type of long necklace when you shower. 3. Replace drain gauze and taped to secure. 4. Record the output from your ROB bulb (at least once daily) on the form provided and bring this with you to your follow-up appointment. 5. Keep the ROB drain to suction (squeeze the bulb and replace the cap while squeezing). 6. Strip the lines twice daily (hold onto the line as close to the body as you can, then with the other hand push the contents of the line into the ROB bulb). - Transfer Medications Prescriptions: Ciprofloxacin [Cipro] 500 mg PO BID 7 Days #14 tablet Fluconazole [Diflucan] 200 mg PO DAILY 7 Days #14 tablet metroNIDAZOLE [Flagyl] 500 mg PO TID 7 Days #21 tablet Ibuprofen [Motrin] 800 mg PO Q8HR PRN #30 tablet PRN Reason: Mild Pain Home Medications: carBAMazepine [Tegretol] 200 mg PO BID 04/29/18 [History] Docusate [Colace] 100 mg PO BID #30 capsule 06/29/18 [Rx] FLUoxetine HCl [Fluoxetine HCl] 40 mg PO QAM 06/29/18 [History] Oxycodone HCl/Acetaminophen [Percocet 5-325 mg Tablet] 1 each PO Q4HR PRN 7 Days #30 tablet 06/29/18 [Rx] Ciprofloxacin [Cipro] 500 mg PO BID 7 Days #14 tablet 07/03/18 [Rx] Fluconazole [Diflucan] 200 mg PO DAILY 7 Days #14 tablet 07/03/18 [Rx] Ibuprofen [Motrin] 800 mg PO Q8HR PRN #30 tablet 07/03/18 [Rx] metroNIDAZOLE [Flagyl] 500 mg PO TID 7 Days #21 tablet 07/03/18 [Rx] Allergies/Adverse Reactions: Allergy/AdvReac Type Severity Reaction Status Date / Time morphine AdvReac Vomiting Verified 06/29/18 11:17 Certification: Further, I certify that my clinical findings support that this patient is homebound (i.e. absences from home require considerable and taxing effort and are for medical reasons or holiness services or infrequently or short duration when for other reasons) because: Homebound Reason: Post-surgery restriction and or conditions limit ability to leave home, Leaving home requires considerable and taxing effort due to condition Attestation: My signature below is to certify that this patient is under my care and that I, or nurse practitioner, or a physician's virtual office assistant working with me, has a [id number] encounter with this patient.
== END 2018-07-03 14:53 | disposition home health service (06) | DRG 223 ==
LOC: SAMDAY 10:43 → 3ANU 20:28
PROVIDERS: ADMIT Surgery; ATTEND Surgery